=== PATIENT | female | born 1990 | race Caucasian/White ===

== ENCOUNTER 2020-10-31 05:23 | Inpatient (IN) | payer OTHER, SELFPAY ==
[2016-11-06 03:24] VITALS: BMI 29.6
[2020-10-31] VITALS (25 sets, daily range): BP systolic 90–135; BP diastolic 46–80; PULSE 57–118; RESP 16; TEMP 36–37.3; O2SAT 96–98; BMI 29.9
[2020-10-31] MEDS: Lactated Ringers 500 ML 999 ML IV (05:45)
[2020-10-31] MEDS: Lactated Ringers 1,000 ML 50 ML IV (05:45)
[2020-10-31 06:09] LABS: Absolute Neutrophil Count 8.9 X10^3/uL (2.0-7.7); Basophil# 0.05 X10^3/uL; Basophil% 0.4 % (0-1); Eosinophil# 0.22 X10^3/uL; Eosinophils% 1.7 % (0-5); Hematocrit 34.3 % (37-47); Lymphocyte % 21.2 % (19-41); Mean Corp Hgb Conc 32.1 g/dL (32-36); Mean Corpuscular Hgb 28.3 pg (27.0-32.0); Mean Corpuscular Volume 88.2 fL (81-99); Mean Platelet Vol. 10.2 fl (6.2-12.0); Monocyte# 0.78 X10^3/uL; Monocyte% 6.1 % (0-10); NRBC Flagged by Analyzer 0 % (0-5); Neutrophil # 8.88 X10^3/uL (2.7-7.7); Platelet Count 406 K/mm3 (150-450); RBC Distribution Width CV 13.2 % (11.6-14.6); RBC Distribution Width SD 42.3 fl (35.1-43.9); Red Blood Count 3.89 M/mm3 (4.2-5.4); White Blood Count 12.7 K/mm3 (4.4-11.0)
[2020-10-31] MEDS: Oxytocin 30 units/NS 500 ml 30 UNITS/500 ML IV.SOLN 334 UNITS IV (06:41)
--- NOTE | 2020-10-31 06:47 | PCM.HP.OB ---
History Date of Admission: 10/31/20 Final ZOHRA: 11/08/20 Final ZOHRA Source: US >20 weeks - EDC by 38 week US Gestational age: 38 Weeks and 6 Days History of this : This is a 30 year-old, , at 38.6 weeks gestational age- c/o SROM at home 0430, clear fluid. on arrival grossly ruptured and 5cm dilated. Allergies No Known Allergies Allergy (Verified 10/31/20 06:32) Home Medications: Home Medications Vits [Prenatabs FA ] 1 tablet PO DAILY 11/18/14 Omeprazole 20 mg PO DAILY 10/31/20 Smoking Status: Current every day smoker Alcohol: None Number of Fetus(es): 1 History Past Pregnancies: Past Pregnancies Delivery Date Name GA/ Weeks Outcome Route Wt Infant Sex Labor Length Anesthesia Delivery Location Provider FOB Expected Delivery Method: Spontaneous Vaginal Review of Systems Constitutional: Denies: Anorexia Eyes: Denies: Blurred vision HEENT: Denies: Difficulty Hearing, Head Aches Gastrointestinal: Reports: Abdominal Pain - from contractions Physical Exam Vitals: Vital Signs Pulse BP Pulse Ox 88 110/59 L 98 10/31/20 05:41 10/31/20 05:41 10/31/20 05:40 General: Alert, Oriented x3 Abdomen: Soft, Gravid Neurological: Cranial nerves II-XII grossly intact SCREEN ROOM OPERATOR: Normal external genitalia Estimated gestational size: Appropriate for gestational size Presentation: Cephalic Cervix Dilation (cm): 6.5 Station: -2 Assessment/Plan This is a 30 year-old, , at 38.6 weeks gestational age- SROM at home in labor [facility] .
--- NOTE | 2020-10-31 06:51 | PCM.OPRPT ---
Vaginal Delivery Maternal Presentation: Active Labor, Spontaneous Rupture of Membranes Amniotic Membrane Rupture Type: Spontaneous at home Rupture of Membrane time: 0430 Amniotic Fluid Description: Clear Final ZOHRA: 11/08/20 Gestational age: 38 Weeks and 6 Days Date of Procedure: 10/31/20 - delivery at 0639 Pre-Operative Diagnosis: term gestation, Active labor, SROM Post-Operative Diagnosis: same, live female Surgery/ Procedure Performed: Spontaneous Vaginal Delivery Type of Anesthesia: Epidural Description of Procedure: Patient progressed quickly to fully dilated and delivered with 1 push at 0639. female delivered without complication. was placed on the mother's chest for immediate skin the skin. delayed cord clamping was performed. Placenta was delivered intact and without complication. Perineum and vagina evaluated-no lacerations appreciated. Presentation: Vertex Placental Delivery Description: Spontaneous Placenta Disposition: [facility] Cord Vessel Description: 3 Vessels Cord Entanglement: None Estimated Blood Loss: 200 A gender: Female (1 minute): 8 (5 minute): 9 Episiotomy Description: None Laceration: None Medications given after delivery: IV Pitocin Complications: - - no implantable devices
[2020-10-31] MEDS: Acetaminophen 500 MG Tablet 1000 MG PO ×2 (07:48→15:49)
[2020-10-31] MEDS: Ibuprofen 600 MG Tablet PO ×2 (08:59→18:35)
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
[2020-11-01] MEDS: Acetaminophen 500 MG Tablet 1000 MG PO (00:59)
[2020-11-01] MEDS: Ibuprofen 600 MG Tablet PO (03:17)
[2020-11-01 03:19] VITALS: BP 109/63; PULSE 65; RESP 16; TEMP 37.2; O2SAT 97
[2020-11-01 03:21] VITALS: BP 109/63; PULSE 65; PULSE 70; O2SAT 96
[2020-11-01 07:37] VITALS: BP 117/58; PULSE 71; RESP 18; TEMP 36.6
[2020-11-01 07:39] VITALS: BP 117/58; PULSE 71; TEMP 36.2
--- NOTE | 2020-11-01 07:47 | PCM.PN.OB ---
Subjective: Patient seen at bedside, doing well. Patient reports good pain control. Mild lochia. Breast-feeding going well. Patient is requesting DC home today. - Physical Exam Vitals/I&O's: Vital Signs Temp Pulse Resp BP Pulse Ox 97.2 F L 71 18 117/58 L 96 11/01/20 07:39 11/01/20 07:39 11/01/20 07:37 11/01/20 07:39 11/01/20 03:21 Oxygen Delivery Method Room Air Weight: 92 kg Body Mass Index (BMI) 29.9 Intake and Output for Last 24 Hours 10/30/20 10/31/20 11/01/20 23:59 23:59 23:59 Intake Total 1045 / 1045 Balance 1045 / 1045 General: Alert, Oriented x3 Abdomen: Soft, Non Tender, Non-Distended, - - fundus firm Extremities: No Calf Tenderness Neurological: Cranial nerves II-XII grossly intact Microbiology Past 72 Hours 10/31/20 06:00 Mucosa - Nasopharyngeal SARS-CoV-2 Antigen (Rapid) - Final Current Medications Acetaminophen (Acetaminophen 500 Mg Tablet) 1,000 mg PO Q8H PRN PRN PRN Reason: Pain Score 1-3 Last Admin: 11/01/20 00:59 Dose: 1,000 mg Documented by: Bisacodyl (Bisacodyl 10 Mg Suppository) 10 mg RECTAL UD PRN PRN Reason: If no BM Dibucaine (Dibucaine 30 Gm Tube) 1 applic TOPICAL TID PRN PRN; Protocol PRN Reason: Discomfort Hydrocortisone (Hydrocortisone 2.5% Crm) 1 applic TOPICAL TID PRN PRN; Protocol PRN Reason: Discomfort Ibuprofen (Ibuprofen 600 Mg Tablet) 600 mg PO Q6H PRN PRN PRN Reason: Pain Score 1-3 Last Admin: 11/01/20 03:17 Dose: 600 mg Documented by: Methylergonovine Maleate (Methylergonovine 0.2 Mg/Ml Ampul) 0.2 mg IM X1 PRN PRN Reason: Excess bleeding/uterine atony Ondansetron HCl (Ondansetron 4 Mg/2 Ml Vial) 4 mg IV Q4H PRN PRN PRN Reason: Nausea Senna/Docusate Sodium (Senna/Docusate Sodium 1 Tablet) 1 - 2 tablet PO DAILY PRN PRN PRN Reason: Constipation Simethicone (Simethicone 80 Mg Tablet) 80 mg PO PCHS PRN PRN Reason: Indigestion/Stomach pain Sodium Chloride (0.9% Saline Lock 10 Ml Syringe) 5 - 15 ml IV UD PRN PRN Reason: SALINE FLUSH Medical Necessity - Tobacco Use Smoking Status: Current every day smoker Assessment/Plan PPD#1, doing well routine care dc home today
--- NOTE | 2020-11-01 07:50 | DCINST_ITS ---
Discharge Diet: No Restrictions Discharge Activity: Return to Normal Activity, May not drive while taking narcotic pain medications., May Shower May resume sexual activity in: 4-6 weeks Additional Activity Instructions:: Nothing in the vagina for 4-6 weeks. You may return to work/school in 6 weeks. Call your doctor if your incision/area has: Continuous Slow Oozing, Sudden Increased Bleeding, Increased Pain/ Swelling, Increased Redness, Foul Smelling Discharge Call your doctor if you observe: Fever of 101 or Higher, Using more than one pad per hour Additional Instructions: If you experience any of the following, contact your healthcare provider. * Bleeding that soaks a pad every hour for 2 hours * Fever 100.4 or higher * Unrelieved incision or abdominal pain * Swelling, redness, discharge or bleeding from your incision or episiotomy site * Your incision begins to separate * Problems urinating (including inability to urinate or burning while urinating). * Visual changes * Severe headache * Flu-like symptoms * Pain or redness in one of both of your breasts * Pain, warmth, tenderness or swelling in your legs, especially the calf area * Frequent nausea and vomiting * Symptoms of depression or anxiety If you experience any of the following, call 911 or go to the nearest Emergency Room. * Chest pain * Problems breathing * Seizure activity * Partial or complete paralysis of a body part, slurred speech, weakness or drooping of the face, or a sudden inability to walk or hold your balance Allergies/Adverse Reactions: Allergies No Known Allergies Allergy (Verified 10/31/20 06:32) Medications to take at Discharge Vits [Prenatabs FA ] 1 tablet PO DAILY 11/18/14 Omeprazole 20 mg PO DAILY 10/31/20 Ibuprofen [Motrin] 600 mg PO Q6H PRN PRN #30 tab 11/01/20 The following prescriptions were given: Ibuprofen [Motrin] 600 mg PO Q6H PRN PRN #30 tab PRN Reason: Pain Score 1-3 Transmission Status: Pending to [id number] When: Call to make an appointment with your doctor in 2 and 6 weeks. [phone] Please Follow Up With: Chelita Roberson MD Primary Care Physician: Care Physician,No Primary [Primary Care Provider] - Test Results: Test results from this visit will be discussed in further detail at your follow- up appointment, if applicable.
== END 2020-11-01 11:10 | disposition home or self-care (01) | DRG 807 ==
PROVIDERS: Admitting Provider Obstetrics & Gynecology; Visit Provider Obstetrics & Gynecology
DX: O42.02 Full-term premature rupture of membranes, onset of labor within 24 hours of rupture (principal); Z37.0 Single live birth; O62.3 Precipitate labor; O99.334 Smoking (tobacco) complicating childbirth; F17.200 Nicotine dependence, unspecified, uncomplicated; Z3A.38 38 weeks gestation of pregnancy
CPT/HCPCS: 59025; 59050; 85025; 86850; 86900; 86901; 87426; 99218; J7120; G0378

== ENCOUNTER 2022-08-11 13:13 | Emergency (ER) | payer MEDICAID, SELFPAY ==
[2022-08-11 13:14] VITALS: BP 112/67; PULSE 74; RESP 20; TEMP 36.1; O2SAT 98; BMI 30.2
--- NOTE | 2022-08-11 13:22 | ED.RN ---
pt unsure of how far long she is with her , this is her 6th . I'm guessing by my size, I might be 5 months along. pt has had no care, i am taking vitamins.
--- NOTE | 2022-08-11 14:13 | EDS_ITS ---
HPI History of Present Illness Chief Complaint: Cough Narrative Narrative: 32-year-old female presenting with rib pain bilaterally. She states she has been coughing for a week and a half. She denies a fever, chills, body ache. She states she has been taking Tylenol cough and cold medicine. She states she has a distant history of asthma and has an albuterol inhaler but has not had to use this. She does not have any nausea or vomiting. She denies urinary or vaginal complaints. Patient states that her last menstrual period was the end of March and she has had a positive home test. She states she has had any obstetrics care because she is unable to get health insurance. She states that she is going to turn in the paperwork tomorrow. She is also going to see somebody at the care center tomorrow. She states she can feel the baby kicking. This is her sixth . She is G6, P5, A0 PFSH PFSH Medical History no medical history Home Medications vits,calcium no.78-iron fumarate-folic acid 29 mg-1 mg tablet (Pr enatabs FA) 1 tab PO DAILY 11/18/14 [History Last Taken 11/05/16 08:00 1] omeprazole 20 mg tablet,delayed release 20 mg PO DAILY 10/31/20 [History Last Taken 10/30/20 21:00] ibuprofen 600 mg tablet 600 mg PO Q6H PRN PRN Pain Score 1-3 #30 tabs 11/01/20 [Rx Last Taken Unknown] dextromethorphan-guaifenesin 10 mg-200 mg capsule (Robitussin Cough-Chest Congestion DM) 1 tab-cap PO Q8H PRN cough #30 caps 08/11/22 [Rx Last Taken Unknown] Allergy/AdvReac Type Severity Reaction Status Date / Time No Known Allergies Allergy Verified 08/11/22 13:14 Social History Smoking Status: Current every day smoker tobacco type: cigarettes ROS ROS ED Review of Systems ROS Unobtainable: Denies due to encephalopathy Constitutional Constitutional ED: Denies chills or fever(s) ENT ENT ED: Denies ear pain or rhinorrhea Cardiovascular Cardiovascular: Denies chest pain or palpitations Respiratory/Chest Respiratory/Chest: Reports cough; Denies dyspnea Gastrointestinal Gastrointestinal: Denies abdominal pain or constipation Genitourinary Genitourinary ED: Denies dysuria or hematuria Integumentary Denies abscess or Abrasions Neurologic Neurologic: Denies headache(s) or paresthesias Psychiatric Psychiatric: Denies anxiety or depression EXAM Physical Exam Const Vital Signs: 08/11/22 13:14 08/11/22 13:22 08/11/22 15:14 Temperature 96.9 F L Temperature Source Temporal Pulse Rate 74 Respiratory Rate 20 H 17 Respiratory Effort Non-Labored Short of Breath Blood Pressure 112/67 Blood Pressure Mean 82 Pulse Ox 98 Oxygen Delivery Method Room Air Room Air Positive well nourished General Appearance ED: NAD; Negative for pallor HEENT Reports moist mucous membranes Negative for trauma Eyes PERRL and EOMs intact bilaterally Resp normal respiratory effort and clear to auscultation bilaterally Auscultation: Negative for rales, rhonchi or wheezes Cardio regular rate and regular rhythm GI normal to inspection, nondistended, normoactive bowel sounds Narrative: Gravid. Neuro oriented x3 and CN's II-XII intact bilaterally Sensorium / Orientation: alert Psych mental status grossly normal Skin no rashes or lesions noted, no wounds and No skin turgor normal General Skin Exam: Negative for jaundice or pallor MDM MDM MDM Narrative Medical decision making narrative: Patient presenting with cough which has had for a week and a half. She is not producing any sputum. She has some mild pain in the bilateral ribs from coughing so much. She denies fever, chills, shortness of breath. She has not used her albuterol inhaler. Of note the patient states that her last menstrual period was the last week of March. This would put her child estimated age 17 to 18 weeks. She states she does not have an COMMUNICATIONS DEPARTMENT CHAIR and does not have a primary care doctor. On examination I can feel movement. heart tones are 136. I will get a chest x-ray although the patient's lung escoto are clear. Her pulse ox is 98% on room air. Pulse 74. She is not in any distress. Chest x-ray my interpretation shows no acute cardiopulmonary process and radiologist agree. Patient given prescription for Robitussin for her cough. She states he is going to follow-up with the care center as an outpatient but she was given a referral to OB. She does not have any vaginal discharge, vaginal bleeding, dysuria. She is not having any nausea or vomiting. I do not believe she needs blood work or imaging. Given that she appears gravid, there is good movement and good heart tones I feel the patient is safe for outpatient follow-up. Impression: 1. Second trimester 2. Cough Lab Data Attestation: I reviewed the patient's lab results. Radiography Diagnostic Testing: Clinical Impression(s) from Imaging Studies Chest X-Ray 08/11/22 14:37 IMPRESSION: No radiographic evidence of acute cardiopulmonary disease. Electronically Signed: Lowell Parekh MD at 15:10 EDT , Discharge Plan Triage Chief Complaint: Cough Other Complaint: Chest Other ED Provider: Eliud Hobson Dx/Rx/DC Orders Instructions: 2nd Trimester Adapt, ED Strain Chest Wall Prescriptions: New Robitussin Cough-Chest Thai DM 10-200 mg capsule 1 tab-cap PO Q8H PRN (Reason: cough) Qty: 30 0RF No Action vit,[id number] [Prenatabs FA] 1 TABLET tablet 1 tab PO DAILY omeprazole 20 MG tablet,delayed release (DR/EC) 20 mg PO DAILY ibuprofen 600 MG tablet 600 mg PO Q6H PRN PRN (Reason: Pain Score 1-3) Qty: 30 0RF Primary Care Provider: Care Physician,No Primary Referrals: Samir Martin MD [Med Staff - Active Staff] - As soon as possible Care Physician,No Primary [Primary Care Provider] - Disposition Disposition: Home, Self Care
--- NOTE | 2022-08-11 14:37 | RAD_ITS ---
INDICATION: cough EXAMINATION/TECHNIQUE: X-RAY - XR Chest 1 View COMPARISON: 03/16/2015. FINDINGS: LINES/DEVICES: None. LUNGS: No consolidation, edema or effusion. No pneumothorax. MEDIASTINUM AND CARDIOVASCULAR STRUCTURES: Cardiac silhouette not enlarged. Central airways and mediastinal contour are unremarkable. BONES AND SOFT TISSUES: Unremarkable. RAD/Chest 1 View (Portable) IMPRESSION: No radiographic evidence of acute cardiopulmonary disease. Electronically Signed: Lowell Parekh MD at 15:10 EDT ,
[2022-08-11 15:14] VITALS: RESP 17
--- NOTE | 2022-08-11 15:28 | CM.ED ---
RIMA Note Referral Source: JU Hannon Referral Reason: Patient has no OB care and suspects she is 5 months pregancy. No insurance SW met with patient and her mother. Patient gave permission for this commercial insurance underwriter to speak in the presence of her mother. Patient said she has no insurance and when she applied last time she did not qualify but she was not . SW asked about OB and patient has no OB. SW offered to make referral to WIC and [facility] and patient said that she works with [facility] with her 2 year old. Patient was in agreement to referral for [facility] and WIC. SW provided patient with [facility] Healthcare Provider list and patient said she wants to go to the [facility]. SW provided patient with [place] medicaid application. SW made on line referral for [facility] and WIC. No other issues or concerns voiced. No further SW needs at this time. JU Hannon updated. Plan: resources provided Leidy LOAIZA
== END 2022-08-11 15:47 | disposition home or self-care (01) ==
PROVIDERS: Emergency Provider Student in an Organized Health Care Education/Training Program; Visit Provider Student in an Organized Health Care Education/Training Program
DX: O99.891 Other specified diseases and conditions complicating pregnancy (principal); R05.9 Cough, unspecified; O99.332 Smoking (tobacco) complicating pregnancy, second trimester; F17.210 Nicotine dependence, cigarettes, uncomplicated; Z3A.17 17 weeks gestation of pregnancy
CPT/HCPCS: 71045; 99282

== ENCOUNTER 2022-09-07 09:35 | Outpatient (CLI) | payer MEDICAID, SELFPAY ==
[2022-09-07 09:51] VITALS: BMI 30.7
[2022-09-07 10:00] VITALS: BP 119/77; PULSE 108; TEMP 36.8; O2SAT 99
[2022-09-07 10:54] LABS: ROM Internal Control Test YES-OK TO RESULT pt. (Internal QC); ROM Patient Test Negative (Negative)
--- NOTE | 2022-09-08 09:29 | OB.TRI.HP_ITS ---
HPI - General General Date of Service: 09/08/22 Chief Complaint: @ 38+ weeks r/o SROM HPI Narrative SOFYA MARIE, is a 32 F w/o LOF and contrations. PFSH PFSH Medical History no medical history Home Medications vits,calcium no.78-iron fumarate-folic acid 29 mg-1 mg tablet (Prenatabs FA) 1 tab PO DAILY 11/18/14 [History Last Taken 07/21/22] omeprazole 20 mg tablet,delayed release 20 mg PO DAILY 10/31/20 [History Last Taken 09/06/22 08:00] Lactobacillus acidophilus 1.5 mg (250 million cell) capsule (Probiotic Acidophilus) 1,000 mmu cells PO DAILY Check with primary doctor 09/07/22 [History Last Taken Unknown] acetaminophen 325 mg tablet (Tylenol) 325 mg PO Q6H PRN pain 09/07/22 [History Last Taken 07/21/22] amoxicillin 875 mg-potassium clavulanate 125 mg tablet tab 09/07/22 [History Las t Taken 09/06/22] Allergy/AdvReac Type Severity Reaction Status Date / Time No Known Allergies Allergy Verified 09/07/22 10:00 Social History Smoking Status: Current every day smoker tobacco type: cigarettes History Elective abortions Hx Para 4 Spontaneous abortions Hx # Term Pregnancies Ectopic pregnancies Hx # Pregnancies Multiple births # of living children NST FHR Rate Baby A Baseline: 120 Variability:: Moderate Accelerations:: 15 x 15 Decelerations:: None NST Reactive:: Yes FHR Category:: Category I Uterine Activity:: irregular Assessment & Plan (1) 38 weeks gestation of : (2) Intact amniotic membranes: (3) Grand multiparity: PLAN: Plan @ 38+ weeks r/o labor and srom 1) rom plus was negative- membranes intact 2) VE 3/70/-3 posterior per RN 3) NST reactive- early tracing has some areas of break up in tracing - approximately last 24min category 1 reactive 4) Dc home
== END 2022-09-07 11:05 | disposition home or self-care (01) ==
LOC: WPOUT 09:41 → WP 09:42
PROVIDERS: Referring Provider Obstetrics & Gynecology; Visit Provider Obstetrics & Gynecology
DX: O09.10 Supervision of pregnancy with history of ectopic pregnancy, unspecified trimester (principal); O99.333 Smoking (tobacco) complicating pregnancy, third trimester; F17.210 Nicotine dependence, cigarettes, uncomplicated; Z3A.38 38 weeks gestation of pregnancy
CPT/HCPCS: 59025; 59050; 84112; 99218; G0378

== ENCOUNTER 2022-09-11 16:15 | Outpatient (CLI) | payer MEDICAID, SELFPAY ==
[2022-09-11 16:25] VITALS: BMI 31.0
[2022-09-11 16:30] VITALS: BP 119/70; PULSE 88; TEMP 36.8
[2022-09-11 17:06] LABS: ROM Internal Control Test YES-OK TO RESULT pt. (Internal QC); ROM Patient Test Negative (Negative)
--- NOTE | 2022-09-11 18:43 | OB.TRI.NOTE ---
HPI - General HPI Narrative SOFYA MARIE, is a 32 F at 39.2 who presents to triage with leaking water and contractions. Patient unsure if water broke. She started feeling contractions every 8-10 minutes at home. Positive movement. Denies any vaginal bleeding. PFSH PFSH Medical History no medical history Home Medications vits,calcium no.78-iron fumarate-folic acid 29 mg-1 mg tablet (Prenatabs FA) 1 tab PO DAILY 11/18/14 [History Last Taken 09/11/22 08:00] omeprazole 20 mg tablet,delayed release 20 mg PO DAILY 10/31/20 [History Last Taken 09/10/22 08:00] Lactobacillus acidophilus 1.5 mg (250 million cell) capsule (Probiotic Acidophilus) 1,000 mmu cells PO DAILY Check with primary doctor 09/07/22 [History Last Taken 09/10/22 08:00] acetaminophen 325 mg tablet (Tylenol) 325 mg PO Q6H PRN pain 09/07/22 [History Last Taken 07/21/22] Allergy/AdvReac Type Severity Reaction Status Date / Time No Known Allergies Allergy Verified 09/11/22 16:38 Social History Smoking Status: Current every day smoker tobacco type: cigarettes History Elective abortions Hx Para 4 Spontaneous abortions Hx # Term Pregnancies Ectopic pregnancies Hx # Pregnancies Multiple births # of living children ROS Eyes Eyes: Denies blurry vision Cardiovascular Cardiovascular: Reports none; Denies chest pain at rest, chest pain with activity or dizziness Respiratory/Chest Respiratory/Chest: Denies cough or dyspnea Gastrointestinal Gastrointestinal: Reports none and other; Denies diarrhea or vomiting Genitourinary Genitourinary: Denies dysuria Musculoskeletal Musculoskeletal: Reports none Integumentary Integumentary: Reports none; Denies rash Neurologic Neurologic: Denies dizziness, headache(s) or other visual disturbances Psychiatric Psychiatric: Reports none Physical Exam Const alert and no apparent distress General Appearance: cooperative Orientation / Consciousness: awake Exam Limitations: no limitations HEENT normocephalic Eyes General Eye: normal appearance of both eyes Neck full ROM Chest inspection of chest normal Resp normal respiratory effort and normal air movement Effort and Inspection: symmetric chest movement Auscultation: clear to auscultation bilaterally Cardio regular rate GI soft to palpation, non-tender and non-distended Inspection: and other Back/Spine normal ROM Extremity full ROM, normal capillary refill and no calf tenderness Skin no rashes or lesions noted Neuro oriented x3 and CN's II-XII intact bilaterally Psych mental status grossly normal NST FHR Rate Baby A Baseline: 125 Variability:: Moderate Accelerations:: 15 x 15 Decelerations:: None NST Reactive:: Yes FHR Category:: Category I Uterine Activity:: Irregular Assessment & Plan (1) Grand multiparity: (2) 38 weeks gestation of : (3) Leakage of amniotic fluid: PLAN: Plan NST reactive, Cat. 1 tracing ROM plus - negative CE- unchanged after 2 hours 3.5/70/-2 Patient desires unmedicated labor and delivery Labor precautions and kick counts reviewed D/C home with follow up in office this week Dr. Wilcox notified of status
== END 2022-09-11 18:35 | disposition home or self-care (01) ==
LOC: WPOUT 16:21 → WP 16:21
PROVIDERS: Visit Provider Advanced Practice Midwife
DX: O42.92 Full-term premature rupture of membranes, unspecified as to length of time between rupture and onset of labor (principal); O09.43 Supervision of pregnancy with grand multiparity, third trimester; O99.333 Smoking (tobacco) complicating pregnancy, third trimester; F17.210 Nicotine dependence, cigarettes, uncomplicated; Z3A.38 38 weeks gestation of pregnancy
CPT/HCPCS: 59025; 59050; 84112; 99218; G0378

== ENCOUNTER 2022-09-13 14:50 | Outpatient (CLI) | payer MEDICAID, SELFPAY ==
[2022-09-13 15:10] VITALS: BP 116/75; PULSE 92; TEMP 36.7
[2022-09-13 15:45] LABS: ROM Internal Control Test YES-OK TO RESULT pt. (Internal QC); ROM Patient Test Negative (Negative)
--- NOTE | 2022-09-22 12:29 | OB.TRI.HP_ITS ---
HPI - General General Date of Service: 09/14/22 HPI Narrative SOFYA MARIE, is a 32 F who presents [facility] Medical History no medical history Home Medications vits,calcium no.78-iron fumarate-folic acid 29 mg-1 mg tablet (Prenatabs FA) 1 tab PO DAILY 11/18/14 [History Last Taken 09/19/22 08:00] omeprazole 20 mg tablet,delayed release 20 mg PO DAILY 10/31/20 [History Last Taken 09/19/22 08:00] Lactobacillus acidophilus 1.5 mg (250 million cell) capsule (Probiotic Acidophilus) 1,000 mmu cells PO DAILY Check with primary doctor 09/07/22 [History Last Taken 09/19/22 08:00] Allergy/AdvReac Type Severity Reaction Status Date / Time latex Allergy Rash Verified 09/19/22 18:00 Social History Smoking Status: Current every day smoker tobacco type: cigarettes History Elective abortions Hx Para 4 Spontaneous abortions Hx # Term Pregnancies Ectopic pregnancies Hx # Pregnancies Multiple births # of living children Assessment & Plan (1) False labor: PLAN: NST for false labor
== END 2022-09-13 16:38 | disposition home or self-care (01) ==
LOC: WPOUT 14:57 → WP 14:58
PROVIDERS: Visit Provider Obstetrics & Gynecology
DX: O47.9 False labor, unspecified (principal)
CPT/HCPCS: 59025; 59050; 84112

== ENCOUNTER 2022-09-19 17:25 | Outpatient (CLI) | payer MEDICAID, SELFPAY ==
[2022-09-19 17:53] VITALS: BMI 31.0
[2022-09-19 17:58] VITALS: BP 116/73; TEMP 36.3
[2022-09-19 17:59] VITALS: PULSE 86; O2SAT 97
[2022-09-19 18:24] LABS: ROM Internal Control Test YES-OK TO RESULT pt. (Internal QC); ROM Patient Test Negative (Negative)
--- NOTE | 2022-09-23 19:36 | OB.TRI.PN ---
Progress Notes Progress Note: 32 year old female presents at 403d for leakage of fluid. Laboratory Studies: Laboratory Tests 09/19/22 Range/Units 17:55 Vag Amniotic Fld Detect Negative (Negative) 125, moderate, accels Reactive Assessment & Plan (1) Leakage of amniotic fluid: (2) False labor: (3) Intact amniotic membranes: PLAN: Plan 1) D/C home. No gross rupture of membranes. ROM plus negative 2) Labor instructions
== END 2022-09-19 18:46 | disposition home or self-care (01) ==
LOC: WP 17:32 → WPOUT 17:32
PROVIDERS: Visit Provider Advanced Practice Midwife
DX: O42.92 Full-term premature rupture of membranes, unspecified as to length of time between rupture and onset of labor (principal); Z3A.40 40 weeks gestation of pregnancy; O47.1 False labor at or after 37 completed weeks of gestation
CPT/HCPCS: 59025; 59050; 84112; 99218; G0378

== ENCOUNTER 2022-09-23 07:00 | Inpatient (IN) | payer MEDICAID, SELFPAY ==
[2022-09-23] VITALS (19 sets, daily range): BP systolic 101–140; BP diastolic 57–79; PULSE 61–77; RESP 16; TEMP 36.4–36.9; O2SAT 97–100; BMI 31.6
[2022-09-23] MEDS: Lactated Ringers 1,000 ML 50 ML IV (08:10)
[2022-09-23 08:27] LABS: Absolute Lymphocyte Count 2.34 X10^3/uL (0.83-4.51); Absolute Neutrophil Count 7.1 X10^3/uL (2.0-7.7); Basophil# 0.08 X10^3/uL; Basophil% 0.7 % (0-1); Eosinophil# 0.38 X10^3/uL; Eosinophils% 3.5 % (0-5); Hemoglobin 10.9 g/dL (12.0-15.0); Lymphocyte # 2.34 X10^3/ul (0.83-4.51); Lymphocyte % 21.8 % (19-41); Mean Corpuscular Hgb 28.8 pg (27.0-32.0); Mean Corpuscular Volume 87.3 fL (81-99); Mean Platelet Vol. 10.1 fl (6.2-12.0); Monocyte# 0.76 X10^3/uL; Monocyte% 7.1 % (0-10); NRBC Flagged by Analyzer 0 % (0-5); Neutrophil # 7.11 X10^3/uL (2.7-7.7); Neutrophil % 66.2 % (47-70); Platelet Count 371 K/mm3 (150-450); RBC Distribution Width CV 13.4 % (11.6-14.6); Red Blood Count 3.78 M/mm3 (4.2-5.4); White Blood Count 10.7 K/mm3 (4.4-11.0)
[2022-09-23] MEDS: Oxytocin 15 Units/NS 250ml 15 UNITS/250 ML IV.SOLN 2 UNITS IV (08:34)
[2022-09-23 09:37] LABS: Amphetamine Urine VISTA NEGATIVE (<1000 ng/mL); Barbiturate Urine VISTA NEGATIVE (< 200 ng/mL); Benzodiazepine Urine VISTA NEGATIVE (< 200 ng/mL); Cocaine Urine VISTA NEGATIVE (< 300 ng/mL); Ecstacy Urine VISTA NEGATIVE (< 500 ng/mL); Methadone Urine VISTA NEGATIVE (< 300 ng/mL); PCP Urine VISTA NEGATIVE (< 25 ng/mL); THC Urine VISTA NEGATIVE (< 50 ng/mL); Vista UDS pH Range 6
--- NOTE | 2022-09-23 11:46 | PCM.PN.BLA ---
Progress Note pt seen at bedside, VE: 3.5/70/-2. AROM performed- large amount of clear fluid. FHR Cat 1. Continue pitocin. anticipate
--- NOTE | 2022-09-23 12:31 | PCM.HP.OB ---
HPI - General General Date of Admission: 09/23/22 HPI Narrative SOFYA MARIE, is a 32 F who presents at 41 weeks by ultrasound for induction of labor . Maternal Data Information Final ZOHRA: 09/16/22 Gestational age: 41 weeks [facility] Medical History (Updated 09/23/22 @ 15:19 by Asha Saenz CNM) Anxiety Asthma Depression Home Medications vits,calcium no.78-iron fumarate-folic acid 29 mg-1 mg tablet (Prenatabs FA) 1 tab PO DAILY 11/18/14 [History Last Taken 09/22/22 08:00] omeprazole 20 mg tablet,delayed release 20 mg PO DAILY 10/31/20 [History Last Taken 09/21/22 08:00] Lactobacillus acidophilus 1.5 mg (250 million cell) capsule (Probiotic Acidophilus) 1,000 mmu cells PO DAILY Check with primary doctor 09/07/22 [History Last Taken 09/22/22 08:00] Allergy/AdvReac Type Severity Reaction Status Date / Time latex Allergy Rash Verified 09/23/22 07:37 Surgical History (Updated 09/23/22 @ 08:51 by Cnadi Bradford) History of surgery Social History Smoking Status: Light Smoker (<10/day) History Elective abortions Hx Para 5 Spontaneous abortions Hx # Term Pregnancies Ectopic pregnancies Hx # Pregnancies Multiple births # of living children NST FHR Rate Baby A Baseline: 135 Variability:: Moderate Accelerations:: 15 x 15 Decelerations:: Variable FHR Category:: Category II Uterine Activity:: every 2-3 minutes strong ROS Constitutional Constitutional: Reports systems reviewed and no addt'l complaints, except as documented; Denies headache(s) Eyes Eyes: Denies acute decrease in peripheral vision, blurry vision or change in vision ENT HEENT: Reports systems reviewed and no addt'l complaints, except as documented Cardiovascular Cardiovascular: Denies chest pain or dizziness Respiratory/Chest Respiratory/Chest: Denies cough, dyspnea, dyspnea on exertion, shortness of breath at rest or shortness of breath with exertion Gastrointestinal Gastrointestinal: Denies abdominal pain, diarrhea, nausea or vomiting Genitourinary Genitourinary: Denies abdominal discomfort Musculoskeletal Musculoskeletal: Denies limited range of motion Integumentary Integumentary: Reports systems reviewed and no addt'l complaints, except as documented Neurologic Neurologic: Reports systems reviewed and no addt'l complaints, except as documented Psychiatric Psychiatric: Reports systems reviewed and no addt'l complaints, except as documented Endocrine Endocrinology: Reports systems reviewed and no addt'l complaints, except as documented Hematologic/Lymphatic Hematologic/Lymphatic: Reports systems reviewed and no addt'l complaints, except as documented Allergic/Immunologic Allergic/Immunologic: Reports systems reviewed and no addt'l complaints, except as documented Vital Signs Vital Signs Vital Signs: 09/23/22 07:44 09/23/22 07:44 09/23/22 08:53 Temperature Temperature Source Pulse Rate 77 Blood Pressure 113/71 108/70 BP Systolic 113 108 BP Diastolic 71 70 Pulse Ox 09/23/22 08:53 09/23/22 10:12 09/23/22 10:12 Temperature Temperature Source Pulse Rate 69 69 Blood Pressure 112/62 BP Systolic 112 BP Diastolic 62 Pulse Ox 09/23/22 10:12 09/23/22 10:12 09/23/22 10:12 Temperature 98.1 F Temperature Source Temporal Pulse Rate Blood Pressure BP Systolic BP Diastolic Pulse Ox 99 09/23/22 07:44 09/23/22 07:44 09/23/22 11:41 Temperature 97.6 F L Temperature Source Temporal Pulse Rate Blood Pressure 101/70 BP Systolic 101 BP Diastolic 70 Pulse Ox 09/23/22 11:41 09/23/22 11:41 09/23/22 11:41 Temperature 98.1 F Temperature Source Temporal Pulse Rate 75 Blood Pressure BP Systolic BP Diastolic Pulse Ox Weight Weight: 208 lb 5.389 oz Body Mass Index (BMI) 31.6 Physical Exam Const alert and oriented x3 General Appearance: cooperative Orientation / Consciousness: awake, oriented to person, oriented to place and oriented to time Exam Limitations: no limitations HEENT normocephalic Head and Scalp: normal to inspection, normocephalic and atraumatic Face and Sinus: normal facial exam Eyes General Eye: normal appearance of both eyes Neck full ROM Chest Chest: symmetrical chest wall rise Resp normal respiratory effort and normal air movement Auscultation: clear to auscultation bilaterally Cardio regular rate, regular rhythm, S1 normal heart sound, S2 normal heart sound, no murmurs, no rub, no gallops and no clicks GI normal to inspection, nondistended, normoactive bowel sounds and non-tender appearance of the vagina normal Narrative: cervix 7cm/80%/-1. clear fluid from previous AROM Bladder / Kidney Exam: no CVA tenderness Back/Spine normal ROM Extremity normal to inspection and full ROM Skin no rashes or lesions noted Neuro oriented x3, CN's II-XII intact bilaterally and moves all extremities Sensorium / Orientation: awake, alert and oriented to person Motor Exam: clonus absent Deep Tendon Reflexes: Rt Patellar (L4): 2+ and Lt Patellar (L4): 2+ Labs Labs Labs: Blood Type A POSITIVE Antibody Screen NEGATIVE Hct 33.0 % (37-47) L Hgb 10.9 g/dL (12.0-15.0) L Group B Strep DNA Negative (Negative) Rhogam given: No Rubella Immune RPR NR HBsAG negative HepC negative HIV NR A positive, antibody negative GC/CT negative GBS negative Assessment & Plan (1) Encounter for induction of labor: (2) Post-dates : (3) Grand multiparity: (4) Tobacco use during : (5) Two vessel umbilical cord: (6) History of depression: (7) Late care: PLAN: Plan 1) Admit to labor and delivery 2) Routine labs 3) GBS negative 4) Pitocin per policy 5) Planning unmedicated 6) collaborative physician
[2022-09-23] MEDS: Acetaminophen 500 MG Tablet PO (15:29)
[2022-09-23] MEDS: Oxytocin 15 Units/NS 250ml 15 UNITS/250 ML IV.SOLN 83 UNITS IV (15:32)
--- NOTE | 2022-09-23 15:36 | EX.PCM.OBRPT ---
Maternal Data Information Final ZOHRA: 09/16/22 Final ZOHRA Source: US >20 weeks Gestational age: 41 weeks Vaginal Delivery Maternal Presentation Maternal Presentation: Medically Indicated Induction Type of Induction: Pitocin Medical Reason for Induction: Post term Operative Information Date of Procedure: 09/23/22 Pre-Operative Diagnosis: Induction of labor Post-Operative Diagnosis: Surgery / Procedure Performed: Spontaneous Vaginal Delivery Type of Anesthesia: None Estimated Blood Loss: 300 ml Time of Delivery: 14:50 Findings Description of Procedure: Rapid progression from 7cm to complete dilation with strong urge to push. of viable male infant over intact perineum. APGARS 8,9. Infant head delivered with body forthcoming. Mouth and nares wiped for sections. Strong cry. Pitocin started for active 3rd stage management. Cord clamped and cut after pulsations ceased. Placenta delivered intact via elda, 2 vessel cord. vaginal sweep completed and no laceration, EBL 300ml. Sponge and instrument count correct. Mom and baby stable, family bonding well. Presentation: Vertex Amniotic Membrane Rupture Type: Artificial Amniotic Fluid Description: Clear Placental Delivery Description: Spontaneous Placenta Disposition: [facility] Cord Vessel Description: 2 Vessels Cord Entanglement: None A Gender: Male (1 minute): 8 (5 minute): 9 Delayed Cord Clamping: Yes Post Vaginal Delivery Medications Given After Delivery: IV Pitocin Episiotomy Description: None Laceration: None Complication Complications: None
[2022-09-23] MEDS: Ibuprofen 600 MG Tablet PO (22:20)
[2022-09-24 00:02] VITALS: BP 106/62; PULSE 66; RESP 14; TEMP 36.5; O2SAT 97
[2022-09-24 03:51] VITALS: BP 103/65; PULSE 60; RESP 18; TEMP 36.6; O2SAT 96
[2022-09-24 05:55] LABS: Hematocrit 26.7 % (37-47); Hemoglobin 8.5 g/dL (12.0-15.0); Mean Corp Hgb Conc 31.8 g/dL (32-36); Mean Corpuscular Hgb 28.2 pg (27.0-32.0); Mean Corpuscular Volume 88.7 fL (81-99); Mean Platelet Vol. 10.5 fl (6.2-12.0); Platelet Count 306 K/mm3 (150-450); RBC Distribution Width CV 13.2 % (11.6-14.6); RBC Distribution Width SD 42.7 fl (35.1-43.9); Red Blood Count 3.01 M/mm3 (4.2-5.4); White Blood Count 12.7 K/mm3 (4.4-11.0)
[2022-09-24 07:39] VITALS: BP 112/65; PULSE 65; RESP 16; TEMP 36.6; O2SAT 97
[2022-09-24 12:15] VITALS: BP 110/57; PULSE 64; RESP 16; TEMP 36.7; O2SAT 97
[2022-09-24] MEDS: Acetaminophen 500 MG Tablet PO (13:41)
--- NOTE | 2022-09-24 14:31 | DS.PCM_ITS ---
Providers Date of Admission: 09/23/22 Primary Care Physician: Jojo Primary Care Phys Reason For Visit: VAG DELIVERY Diagnosis Discharge Diagnosis (1) Encounter for induction of labor: Status: Acute Code(s): Z34.90 - Encounter for supervision of normal , unspecified, unspecified trimester (2) Post-dates : Status: Acute Code(s): O48.0 - Post-term (3) Grand multiparity: Status: Acute Code(s): Z64.1 - Problems related to multiparity (4) Tobacco use during : Status: Acute Code(s): O99.330 - Smoking (tobacco) complicating , unspecified trimester (5) Two vessel umbilical cord: Status: Acute Code(s): Q27.0 - Congenital absence and hypoplasia of umbilical artery (6) History of depression: Status: Acute Code(s): Z86.59 - Personal history of other mental and behavioral disorders (7) Late care: Status: Acute Code(s): O09.30 - Supervision of with insufficient care, unspecified trimester Plan 1) Admit to labor and delivery 2) Routine labs 3) GBS negative 4) Pitocin per policy 5) Planning unmedicated 6) [facility] Medications at Discharge Home Medications vits,calcium no.78-iron fumarate-folic acid 29 mg-1 mg tablet (Prenatabs FA) 1 tab PO DAILY 11/18/14 acetaminophen 500 mg tablet 1,000 mg PO Q6H PRN PRN Pain 1-10 Or Fever #0 tabs 09/24/22 ferrous sulfate 325 mg (65 mg iron) tablet 325 mg PO BID 30 days #60 tabs 09/24/22 ibuprofen 600 mg tablet 600 mg PO Q6H PRN PRN Pain Score 1-3 #30 tabs 09/24/22 Weight / BMI Weight Weight: 208 lb 5.389 oz Body Mass Index (BMI) 31.6 ABG / Lab / Microbiology Data Result Diagrams: 09/24/22 05:45 Laboratory: Laboratory Results - last 24 hr 09/24/22 05:45: WBC 12.7 H, RBC 3.01 L, Hgb 8.5 L, Hct 26.7 L, MCV 88.7, MCH 28.2, MCHC 31.8 L, RDW Std Deviation 42.7, RDW Coeff of Collette 13.2, Plt Count 306, MPV 10.5 Microbiology: Microbiology 09/23/22 08:00 Nasal Secretion SARS-CoV-2 Antigen (Rapid) - Final Meaningful Use Info Meaningful Use Diagnoses (Choose all that apply): None applicable Discharge Plan Admission Admit Date/Time: 09/23/22 07:00 Primary Reason for Your Visit: Vaginal delivery Attending Provider: Asha Saenz Primary Care Provider: Care Physician,No Primary Discharge Orders/Prescriptions Prescriptions: New acetaminophen 500 mg Tablet 1,000 mg PO Q6H PRN PRN (Reason: Pain 1-10 Or Fever) Qty: 0 0RF ibuprofen 600 mg Tablet 600 mg PO Q6H PRN PRN (Reason: Pain Score 1-3) Qty: 30 0RF ferrous sulfate 325 MG tablet 325 mg PO BID 30 Days Qty: 60 0RF Continued Prenatabs FA 1 TABLET tablet 1 tab PO DAILY Discontinued omeprazole 20 MG tablet,delayed release (DR/EC) 20 mg PO DAILY Probiotic Acidophilus 1.5 mg (250 million cell) Capsule 1,000 mmu cells PO DAILY Referrals / Follow Up: Asha Saenz CNM [Med Staff - Adv Practice Prof] - (2 weeks and 6 weeks PP visit) Care Physician,No Primary [Primary Care Provider] - Disposition Disposition (needs filled in before D/C Order can be placed): Home, Self Care
--- NOTE | 2022-09-24 14:31 | PCM.PN.OB ---
Subjective Subjective Doing well per patient and nursing staff. Ambulating and taking PO without difficulty. Voiding and passing flatus. Pain controlled. , services for assistance. Denies headache, visual changes, chest pain, shortness of breath, leg pain or increased bleeding. Lochia normal. Objective Data Objective Data Vital Signs: Vital Signs Temp Pulse Resp BP Pulse Ox O2 Del Method 98.0 F 64 16 110/57 L 97 Room Air 09/24/22 12:15 09/24/22 12:15 09/24/22 12:15 09/24/22 12:15 09/24/22 12:15 09/24/22 12:15 Oxygen Delivery Method Room Air Weight: 208 lb 5.389 oz Body Mass Index (BMI) 31.6 Intake & Output: Intake and Output for Last 24 Hours 09/22/22 09/23/22 09/24/22 23:59 23:59 23:59 Intake Total 1337.50 / 1337.50 Output Total 350 / 350 Balance 987.50 / 987.50 Lab / Micro Data Result Diagrams: 09/24/22 05:45 Labs: Laboratory Results - last 24 hr 09/24/22 05:45: WBC 12.7 H, RBC 3.01 L, Hgb 8.5 L, Hct 26.7 L, MCV 88.7, MCH 28.2, MCHC 31.8 L, RDW Std Deviation 42.7, RDW Coeff of Collette 13.2, Plt Count 306, MPV 10.5 Micro: Microbiology 09/23/22 08:00 Nasal Secretion SARS-CoV-2 Antigen (Rapid) - Final Physical Exam Const alert and oriented x3 General Appearance: cooperative Orientation / Consciousness: awake, oriented to person, oriented to place and oriented to time Exam Limitations: no limitations HEENT normocephalic Head and Scalp: normal to inspection, normocephalic and atraumatic Face and Sinus: normal facial exam Eyes General Eye: normal appearance of both eyes Neck full ROM Chest Chest: symmetrical chest wall rise Resp normal respiratory effort and normal air movement Auscultation: clear to auscultation bilaterally Cardio regular rate, regular rhythm, S1 normal heart sound, S2 normal heart sound, no murmurs, no rub, no gallops and no clicks GI normal to inspection, nondistended, normoactive bowel sounds and non-tender appearance of the vagina normal Bladder / Kidney Exam: no CVA tenderness Back/Spine normal ROM Extremity normal to inspection and full ROM Skin no rashes or lesions noted Neuro oriented x3, CN's II-XII intact bilaterally and moves all extremities Sensorium / Orientation: awake, alert and oriented to person Motor Exam: clonus absent Deep Tendon Reflexes: Rt Patellar (L4): 2+ and Lt Patellar (L4): 2+ Assessment & Plan (1) History of depression: (2) Vaginal delivery: PLAN: Plan 1) PPD #1 2) Routine PP care 3) 4) Pain management 5) D/C home
--- NOTE | 2022-09-24 17:58 | CM.ED ---
Addendum entered by Leidy Molina 09/24/22 18:08: PNC: [facility]. MOB said that she got late PNC as she did not find out she was till March (nb was conceived in December) and had diffculty with obtaining her health insurance. Control: patch which has previously worked well for patient. Baby Boy: Roseann Sanz : 09/23/[birth year] Apgars: 8/9 Weight: 7# 12 ounce Pediatrican: Lolita Martin Breast feeding which patient reports is going well. MOB's other Children: Elvira, 1 and a half year old oldest children live with their father, shared custody two middle children live with maternal Aunt, CPS case closed, MOB should have visitation with children but do not consistently. MOB reports it's a touchy subject. Housing: MOB reports they live in an apartment that is currently adequate but family is looking to move into a bigger, more affordable home. Current occupants in the apartment include MOB, FOB, and two younger children. Transportation: MOB reports access to transportation by car. Supplies: MOB report they have safe crib, car seat, pack and play with bassinet as well as clothes. Supports: HITESH reports she is supported by FOB who will be on paternity leave with them for at least 4 weeks. HITESH also reports being supported by her sister and grandparents who live locally, FOSaqib's parents are currently in [place] but are still reported as a support. Education level: Last grade completed was 11th grade. HITESH reports needing supports in school due to ADD diagnosis as well as having mild dyslexia. Employment: HITESH works at local [employer] and will be off for 6 weeks with nb after which time the nb will be cared for by MOB's sister. Agency involvement: HITESH reports she currently receives services from [facility]. HITESH is interested in referral for WIC and reports no counseling, legal or other services. [facility] previously involved with care of older children. FOB: Luis Stapleton Time together: 3 to 4 years, were friends since high school Involved at : yes Employment: [employer] in [place], [place]. Other children: One other child with MOB, Elvira, as well as another child, Juan. FOB reports he is usp parent of Juan but has a good relationship with her mother. MH/ DV HX: none reported by FOB Maternal MH HX: History of depression as well as previous engagement in counseling services at [facility] with Fernanda Mayes MOB denies PPD, no current medications, no SI/HI. RIMA provided education to MOB and FOB regarding shaken baby, PPD and safe sleeping. MOB and FOB report an understanding of information provided. AOD History: MOB denies AOD use, reports tobacco use. RIMA reviewed plan to have an adult inside with the nb while MOB uses tobacco products outside of the home. Plan: Discharge Home Leidy ABARCA called Pool, senior java web application developer for [facility] and advised that previous social science instructor had contacted CSB regarding mob not having custody of her 4 other children and at that time CSB had not been involved. RIMA wanted to call and advise CSB of the nb. RIMA provided address and contact number to Pool at [facility]. Pool took the information. Patient has already been discharged home and CSB is aware. Leidy LOAIZA Original Note: RIMA Note Referral Source: [facility] social science instructor Referral Reason: MOB does not have custody of her 4 children. MOB does have custody of almost 2 year old. RIMA and RIMA Tracy met with MOB and FOB in their room. MOB was holding the nb and appeared to be appropriately interacting with the nb. RN caring for the MOB said that MOB was appropriate in caring and feeding the nb. Mom: Lisa Martin PNC: [facility]. MOB said that she got late PNC as she did not find out she was till March (nb was conceived in December) and had diffiu
== END 2022-09-24 16:45 | disposition home or self-care (01) | DRG 560 ==
PROVIDERS: Admitting Provider Advanced Practice Midwife; Visit Provider Advanced Practice Midwife
DX: O76 Abnormality in fetal heart rate and rhythm complicating labor and delivery (principal); Z37.0 Single live birth; F17.200 Nicotine dependence, unspecified, uncomplicated; O48.0 Post-term pregnancy; O99.334 Smoking (tobacco) complicating childbirth; O35.8XX0 Maternal care for other (suspected) fetal abnormality and damage, not applicable or unspecified; Z3A.41 41 weeks gestation of pregnancy; Z86.59 Personal history of other mental and behavioral disorders
CPT/HCPCS: 59025; 59050; 80307; 85025; 85027; 86850; 86900; 86901; 87426; 99218; J7120; G0378